=== PATIENT | female | born 1975 | race American Indian/Alaskan Native ===

== ENCOUNTER 2019-11-01 10:32 | Outpatient (CLI) | payer OTHER ==
--- NOTE | 2019-11-01 15:38 | Mammography Report ---
BILATERAL DIGITAL DIAGNOSTIC MAMMOGRAM WITH CAD 11/01/2019 LEFT LIMITED BREAST ULTRASOUND INDICATION: with a palpable breast mass. TECHNIQUE: Digital bilateral mammographic imaging was performed. Limited ultrasound was performed. T his examination was interpreted with the benefit of Computer-Aided Detection (CAD) analysis. COMPARISON: None. FINDINGS: Breast Density: The breasts are heterogeneously dense, which may obscure small masses. MAMMOGRAPHIC FINDINGS: An oval relatively smooth circumscribed mass in the upper outer quadrant of th e left breast measures 2.2 x 2.2 x 1.0 cm. On the CC view there is suggestion of mild lobulation and a central fatty hilum. No architectural distortion or suspicious calcifications of the left breast. T here is no evidence of dominant mass, suspicious calcifications or architectural distortion in the ri ght breast. ULTRASOUND FINDINGS: Targeted ultrasound evaluation was performed of the area of interest. Ultrasou nd of the upper outer left breast was performed and demonstrated what appears to be a intramammary ly mph node with a fatty hilum at 2:00 3 cm from the nipple. It measures 2.3 x 1.4 x 0.8 cm and correlat es with the mammographic density. IMPRESSION: A probably benign reactive intramammary lymph node at 2:00 left breast. Recommend short-t erm follow-up left breast ultrasound. Follow up recommendation: Short term follow up in 3 months. BI-RADS Category 3: Probably Benign. Followup in 3 months. A "normal" or negative report should not discourage follow up or biopsy of a clinically significant f inding. A written summary of these findings will be mailed to the patient. The patient will be entered into a mammography reporting system which will generate a reminder letter for the patient's next appointmen t at the appropriate interval. According to the [employer], yearly mammograms are recommended starting at age 40 and continuing as long as a woman is in good health. Breast MRI is recommended for women with an yuri roximately 20-25% or greater lifetime risk of breast cancer, including women with a strong family his tory of breast or ovarian cancer and women who have been treated for Hodgkin's disease. Signer Name: West James MD Signed: 11/01/2019 3:33 PM Workstation Name: [id number]
== END 2019-11-01 10:33 | disposition home or self-care (01) ==
LOC: SPVWC 10:32
PROVIDERS: ATTEND Surgery
DX: N63.21 Unspecified lump in the left breast, upper outer quadrant (principal); R59.0 Localized enlarged lymph nodes
CPT/HCPCS: 77066